=== PATIENT | male | born 2000 | race African-American/Black ===

== ENCOUNTER 2020-09-26 02:22 | Inpatient (IN) | payer OTHER ==
[~2020-09-26] VITALS: Ht 175.3 cm; Wt 66.2 kg
[2020-09-26] MEDS ORDERED: ONDANSETRON HCL 4MG/2ML INJ IV ONE (03:00)
[2020-09-26 03:19] LABS: BASOPHILS % 0.2 % (0.0-2.0); EOSINOPHILS % 1.2 % (0.0-5.0); HEMATOCRIT. 46.2 % (42.0-52.0); HEMOGLOBIN. 14.4 g/dL (14.0-18.0); LYMPHOCYTES % 19.4 % (20.0-50.0); MEAN CORPUSCULAR HEMOGLOBIN 29.8 pg (28.0-32.0); MEAN CORPUSCULAR VOLUME 95.4 fL (80.0-94.0); MEAN PLATELET VOLUME 7.4 fl (7.4-10.4); MONOCYTES % 4.7 % (2.0-8.0); NEUTROPHILS % 74.5 % (40.0-76.0); PLATELET 206 x1000/uL (130-400); RED BLOOD CELL COUNT 4.84 mill/uL (4.7-6.1); RED CELL DISTRIBUTION WIDTH 14.6 % (11.6-14.6)
[2020-09-26 03:23] LABS: CHLORIDE 105 mEq/L (98-107)
[2020-09-26 03:31] LABS: ETHANOL BLOOD < 10 mg/dL
[2020-09-26] MEDS ORDERED: POTASSIUM CHLORIDE INJ 30 MEQ in DEXT 5%/0.9% NACL 1,000 ML IV ONE (04:00)
[2020-09-26] MEDS ORDERED: AZITHROMYCIN 500 MG in DEXT 5% WATER 250 ML IV SCH (04:15)
[2020-09-26] MEDS ORDERED: DEXAMETHASONE 10 MG/ML VIAL IV ONE (04:15)
[2020-09-26] MEDS ORDERED: CEFTRIAXONE 1 G PREMIX 50 ML IV ONE (04:15)
[2020-09-26] MEDS ORDERED: SODIUM CHLORIDE 0.9% 1000ML BAG (SEPSIS BOLUS) IV ONE (05:00)
[2020-09-26 07:18] LABS: CLARITY URINE CLEAR (CLEAR); COLOR URINE YELLOW (YELLOW); KETONES URINE NEGATIVE (NEGATIVE); LEUKOCYTE ESTERASE URINE NEGATIVE (NEGATIVE); NITRITE URINE NEGATIVE (NEGATIVE); OCCULT BLOOD URINE NEGATIVE (NEGATIVE); PH URINE 6.5 (4.5-8.0); PROTEIN URINE 1+ (NEGATIVE); SPECIFIC GRAVITY URINE 1.016 (1.005-1.030)
[2020-09-26 07:42] LABS: METHADONE URINE SCREEN NEGATIVE (NEGATIVE); OPIATES URINE SCREEN NEGATIVE (NEGATIVE)
[2020-09-26 07:43] LABS: *AMPHETAMINES SCREEN URINE NEGATIVE (NEGATIVE); *BARBITURATES SCREEN URINE NEGATIVE (NEGATIVE); *BENZODIAZEPINES SCREEN URINE NEGATIVE (NEGATIVE); *COCAINE SCREEN URINE NEGATIVE (NEGATIVE); CANNABINOID URINE SCREEN PRESUMTIVE POSITIVE (NEGATIVE); PHENCYCLIDINE URINE SCREEN NEGATIVE (NEGATIVE)
[2020-09-26 12:00] VITALS: BP 133/82
[2020-09-26 12:57] VITALS: BP 133/82
[2020-09-26] MEDS ORDERED: ACETAMINOPHEN 325MG TABLET PO PRN (13:00)
[2020-09-26] MEDS ORDERED: ALBUTEROL 6.7GM HFA INHALER ORI PRN (13:00)
[2020-09-26] MEDS ORDERED: ONDANSETRON HCL 4MG/2ML INJ IV PRN (13:00)
[2020-09-26] MEDS ORDERED: POTASSIUM CHLORIDE 20MEQ TABLET SR PO NR (13:00)
[2020-09-26] MEDS: ENOXAPARIN 40MG/0.4ML SYR SUBCUT SCH (13:56)
[2020-09-26 15:45] VITALS: BP 130/69
[2020-09-26 20:00] VITALS: BP 126/56
[2020-09-27 00:05] VITALS: BP 131/63
[2020-09-27] MEDS: CEFTRIAXONE 1,000 MG in DEXTROSE 5% WATER 50 ML IV SCH (03:36)
[2020-09-27 04:02] VITALS: BP 97/55
[2020-09-27 06:57] LABS: BASOPHILS % 0.1 % (0.0-2.0); EOSINOPHILS % 0.1 % (0.0-5.0); HEMATOCRIT. 43.8 % (42.0-52.0); HEMOGLOBIN. 14.2 g/dL (14.0-18.0); LYMPHOCYTES % 14.7 % (20.0-50.0); MEAN CORPUSCULAR HEMOGLOBIN 29.8 pg (28.0-32.0); MEAN CORPUSCULAR VOLUME 91.6 fL (80.0-94.0); MEAN PLATELET VOLUME 7.9 fl (7.4-10.4); MONOCYTES % 6.2 % (2.0-8.0); NEUTROPHILS % 78.9 % (40.0-76.0); PLATELET 211 x1000/uL (130-400); RED BLOOD CELL COUNT 4.78 mill/uL (4.7-6.1); RED CELL DISTRIBUTION WIDTH 13.9 % (11.6-14.6)
[2020-09-27 06:58] LABS: CHLORIDE 107 mEq/L (98-107)
[2020-09-27 07:53] VITALS: BP 103/67
[2020-09-27] MEDS: DEXAMETHASONE 6MG TABLET PO SCH (08:07)
[2020-09-27] MEDS: ENOXAPARIN 40MG/0.4ML SYR SUBCUT SCH (08:07)
[2020-09-27] MEDS: AZITHROMYCIN 250 MG TABLET PO SCH (08:07)
[2020-09-27 08:46] LABS: BG BASE EXCESS 0.5 mmol/L (-2.0-2.0); BG CARBOXYHEMOGLOBIN 0.7 % (0.5-1.5); BG HCO3 ACT 25.2 mmol/L (22.0-26.0); BG METHEMOGLOBIN 0.3 % (0.0-1.5); BG PCO2 40.7 mmHg (35.0-45.0); BG PH 7.409 (7.350-7.450); BG PO2 134.9 mmHg (75.0-100.0); BG SAMPLE SITE RIGHT RADIAL; BG TOTAL HEMOGLOBIN 14.6 g/dL (12.0-18.0); BG VENT MODE NASAL CANNULA
[2020-09-27 11:58] VITALS: BP 124/61
[2020-09-27 16:00] VITALS: BP 120/72
[2020-09-27 20:00] VITALS: BP 106/64
[2020-09-28 00:05] VITALS: BP 125/66
[2020-09-28 04:00] VITALS: BP 110/52
[2020-09-28] MEDS: CEFTRIAXONE 1,000 MG in DEXTROSE 5% WATER 50 ML IV SCH (04:04)
[2020-09-28 08:00] VITALS: BP 99/54
[2020-09-28] MEDS: ENOXAPARIN 40MG/0.4ML SYR SUBCUT SCH (09:36)
[2020-09-28] MEDS: AZITHROMYCIN 250 MG TABLET PO SCH (09:36)
[2020-09-28] MEDS: DEXAMETHASONE 6MG TABLET PO SCH (09:36)
[2020-09-28 12:00] VITALS: BP 117/70
[2020-09-28] MEDS ORDERED: ALBU18HF2 IH (12:29)
[2020-09-28] MEDS ORDERED: LEVO500T89 MT (12:29)
[2020-09-28 12:35] VITALS: BP 110/52
== END 2020-09-28 14:07 | disposition home or self-care (01) | DRG 720 ==
LOC: ER 02:22 → 7WST 05:30 → ENRESERV 10:57
PROVIDERS: ADMIT Internal Medicine; ATTEND Internal Medicine
DX: A41.89 Other specified sepsis (principal); J96.01 Acute respiratory failure with hypoxia; J12.82 Pneumonia due to coronavirus disease 2019; U07.1 COVID-19; R04.2 Hemoptysis; T40.2X1A Poisoning by other opioids, accidental (unintentional), initial encounter; G92 Toxic encephalopathy; K92.0 Hematemesis; E87.6 Hypokalemia; F12.90 Cannabis use, unspecified, uncomplicated; J45.909 Unspecified asthma, uncomplicated; R74.01 Elevation of levels of liver transaminase levels; Z88.6 Allergy status to analgesic agent; Z91.010 Allergy to peanuts; Z91.018 Allergy to other foods; Y92.89 Other specified places as the place of occurrence of the external cause
CPT/HCPCS: 36415; 36600; 71045; 80048; 80053; 80305; 80307; 80320; 80329; 81003; 82375; 82728; 82805; 82962; 83036; 83605; 83880; 84145; 85025; 86850; 86900; 87426; 93005; 99291; C9803; J0456; J0696; J1100; J1650; J2405; J3480; J7030; J7042; J7060; U0003; U0005; G0480

== ENCOUNTER 2023-02-22 08:39 | Emergency (ER) | payer MEDICAID, OTHER ==
[~2023-02-22] VITALS: Ht 177.8 cm; Wt 63.5 kg
[~2023-02-22 08:39] MED LIST: ALBU18HF2 IH; LEVO-65 MT
[2023-02-22] MEDS ORDERED: DEXAMETHASONE 4MG TABLET PO ONE (09:15)
[2023-02-22] MEDS ORDERED: IPRATROPIUM/ALBUTEROL 0.5-3(2.5)MG/3ML NEB HHN ONE (09:15)
[2023-02-22 09:24] VITALS: PULSE 72; RESP 20; O2SAT 96
[2023-02-22] MEDS ORDERED: ALBU18HF2 IH (10:06)
[2023-02-22 10:37] VITALS: BP 118/75; PULSE 84; RESP 18; TEMP 98.1
== END 2023-02-22 10:45 | disposition home or self-care (01) ==
LOC: ER 09:07
DX: J06.9 Acute upper respiratory infection, unspecified (principal); F11.10 Opioid abuse, uncomplicated; Z91.018 Allergy to other foods; Z88.6 Allergy status to analgesic agent
CPT/HCPCS: 94640; 99283; J8540; Z7610 ×3